=== PATIENT | male | born 1980 | race African-American/Black ===

== ENCOUNTER 2016-08-08 13:38 | Emergency (ER) | payer OTHER ==
[2016-08-08 13:53] LABS: BASOPHIL COUNT 0.1 K/uL (0-0.1); EOSINOPHIL (%) 0.7 % (0-5); EOSINOPHIL COUNT 0.1 K/uL (0-0.3); HEMATOCRIT 45.5 % (38.0-50.0); IMMATURE GRANULOCYTE (%) 0.2 % (0.0-0.7); INSTRUMENT ABS NEUTROPHIL CT 4.6 K/uL; LYMPHOCYTE COUNT 3.5 K/uL (1.0-2.8); MCH 27.1 PG (29.0-34.0); MCHC 32.3 G/DL (30.0-36.0); MCV 83.9 FL (86-99); MEAN PLAT.VOLUME 9.5 uM^3 (9.0-12.4); MONOCYTE COUNT 0.7 K/uL (0-0.8); NEUTROPHIL (%) 51.9 % (45-76); NEUTROPHIL COUNT 4.6 K/uL (1.8-6.4); PLATELET COUNT 372 K/uL (156-360); RBC DIS.WIDTH-SD 45.5 % (39-53); RED BLOOD COUNT 5.42 M/uL (4.00-5.50); WHITE BLOOD COUNT 8.9 K/uL (4.1-10.2)
[2016-08-08 13:57] LABS: AMYLASE 59 IU/L (1-118); CHLORIDE 105 mEq/L (99-109); POTASSIUM 4.1 mEq/L (3.7-5.4); SODIUM 139 mEq/L (136-147)
[2016-08-08 13:59] LABS: GLUCOSE 83 mg/dL (70-99)
[2016-08-08 14:00] LABS: ANION GAP 10 MEQ/L (2-14)
[2016-08-08 14:02] LABS: SERUM ETHYL ALCOHOL < 10 mg/dL
[2016-08-08 14:04] LABS: UREA NITROGEN (BUN) 11 mg/dL (9-23)
[2016-08-08 14:05] LABS: GFR ESTIMATE (CALCULATED) > 59 mL/min/
[2016-08-08 14:06] LABS: LIPASE 11 U/L (1.0-51.0)
== END 2016-08-08 15:10 | disposition home or self-care (01) ==
LOC: EME 13:38 → TRA 13:38
PROVIDERS: Emergency Medicine
DX: S80.02XA Contusion of left knee, initial encounter (principal); S20.212A Contusion of left front wall of thorax, initial encounter; E04.1 Nontoxic single thyroid nodule; V57.0XXA Driver of pick-up truck or van injured in collision with fixed or stationary object in nontraffic accident, initial encounter; F17.200 Nicotine dependence, unspecified, uncomplicated
CPT/HCPCS: 71260; 73560; 74177; 80048; 81003; 82150; 83690; 85025; 86900; 86901; 99281; 99285; G0480